=== PATIENT | male | born 1995 | race Caucasian/White ===

== ENCOUNTER 2020-01-06 01:52 | Emergency (ER) | payer OTHER ==
[~2020-01-06] VITALS: Ht 182.9 cm; Wt 86.2 kg
--- NOTE | 2020-01-06 01:53 | NUR ---
SANDRA 89 FROM HOME FOR OVERDOSE ON OXYCODONE 30MG IN TOTAL AND ALCOHOL. P A, OX4 BU T VERY DROWSY ON TRIAGE. REC'D NARCAN 2MG IV PROJECT ARCHITECT; pt awake, alert, placed on monitor, rr even and unlabored, -sob. awaiting er doctorzak baig
[2020-01-06 02:26] LABS: BASOPHILS % (AUTO) 0.6 % (0.0-2.0); EOSINOPHILS % (AUTO) 5.1 % (0.0-6.0); HEMATOCRIT 44 % (39-51); HEMOGLOBIN 14.5 g/dL (13.5-17.5); LYMPHOCYTES # (AUTO) 2.8 /CMM (0.8-4.8); LYMPHOCYTES % (AUTO) 38.6 % (20.0-44.0); MEAN CORPUSCULAR HGB CONC 33 g/dl (31.0-36.0); MEAN CORPUSCULAR VOLUME 93 fL (80-96); MONOCYTES # (AUTO) 0.8 /CMM (0.1-1.30); NEUTROPHILS # (AUTO) 3.2 /CMM (1.8-8.9); NEUTROPHILS % (AUTO) 44.7 % (43.0-81.0); PLATELET COUNT (AUTO) 213 /CMM (150-450); RED BLOOD CELL COUNT(AUTO) 4.73 MIL/uL (4.5-6.0); WHITE BLOOD COUNT (AUTO) 7.2 K/uL (4.3-11.0)
[2020-01-06] MEDS ORDERED: NALOXONE PREFILLED SYRINGE 2 MG/2 ML SYRINGE ONE (02:31)
--- NOTE | 2020-01-06 02:42 | NUR ---
[employer] AT BED SIDE
[2020-01-06] MEDS: NALOXONE HCL 4 MG in IV NS 0.9% 240 ML IV PRN (02:44)
[2020-01-06 02:47] LABS: CALCIUM, SERUM 9.2 mg/dL (8.5-10.1); CARBON DIOXIDE 28 mmol/L (21-32); CHLORIDE 99 mmol/L (98-107); CREATININE 1.4 mg/dL (0.6-1.3); GLUCOSE 236 mg/dL (74-106); POTASSIUM 2.9 mmol/L (3.5-5.1); SODIUM SERUM 137 mmol/L (136-145); UREA NITROGEN, BLOOD 12 mg/dL (7-18)
[2020-01-06 02:52] LABS: ALANINE AMINOTRANSFERASE 65 U/L (12-78); ALBUMIN 3.7 g/dL (3.4-5.0); ALCOHOL, BLOOD 46 mg/dL (0-0); ALKALINE PHOSPHATASE 82 U/L (46-116); ASPARTATE AMINOTRANSFERASE 40 U/L (15-37); BILIRUBIN,DIRECT 0.1 mg/dL (0.0-0.2); BILIRUBIN,TOTAL 0.4 mg/dL (0.2-1.0); TOTAL PROTEIN, SERUM 7.1 g/dL (6.4-8.2)
[2020-01-06] MEDS ORDERED: POTASSIUM CHLORIDE 20 MEQ TAB.PRT.SR PO ONE (03:03)
[2020-01-06 03:06] LABS: SALICYLATE 0.7 mg/dL (2.8-20.0)
[2020-01-06 03:07] LABS: ACETAMINOPHEN < 2 ug/ml (10-30)
[2020-01-06] MEDS: POTASSIUM CHLORIDE 20 MEQ TAB.PRT.SR PO ONE (03:07)
[2020-01-06] MEDS: IV NS 0.9% 1,000 ML BAG IV ONE (03:07)
--- NOTE | 2020-01-06 04:00 | NUR ---
COVID NEGATIVE PER LAB
--- NOTE | 2020-01-06 04:21 | NUR ---
DR CLIFTON WITH NEW ORDER FOR TROPONIN.
[2020-01-06 06:11] LABS: APPEARANCE,URINE CLEAR (CLEAR); BILIRUBIN,URINE NEGATIVE (NEGATIVE); BLOOD, URINE NEGATIVE Ery/uL (NEGATIVE); COLOR,URINE YELLOW (YELLOW); KETONES,URINE NEGATIVE (NEGATIVE); LEUKOCYTE ESTERASE ,URINE NEGATIVE (NEGATIVE); NITRITE, URINE NEGATIVE (NEGATIVE); PROTEIN,URINE NEGATIVE (NEGATIVE); UGLUCOSE 100 MG/DL mg/dL (NEGATIVE); UROBILINOGEN,URINE 0.2 EU/dL (0.2)
--- NOTE | 2020-01-06 06:12 | NUR ---
PER VERBAL MD ORDER, WILL D/C NARCAN DRIP AT THIS TIME. PT AWAKE, AAOX4. VITAL SIGNS STABLE. RESPIRATIONS EVEN AND UNLABORED. NO ACUTE DISTRESS NOTED AT THIS TIME. PT STILL ON MONITOR AND PULSE OX, WILL CONTINUE TO MONITOR.
--- NOTE | 2020-01-06 06:21 | NUR ---
URINE COLECTED AND SENT TO LAB
--- NOTE | 2020-01-06 07:25 | NUR ---
FRIEND GORDON WILL PICKUP PATIENT. ETA 30-45MIN
--- NOTE | 2020-01-06 07:39 | NUR ---
ASSESSED PT ON BED AWAKE AND ALERT, NOT IN RESPIRATORY DISTRESS, V/S STABLE, KEPT RESTED AND COMFORTABLE. WILL CONTINUE TO MONITOR.
--- NOTE | 2020-01-06 08:05 | NUR ---
SPOKED TO PT'S FRIEND AND SHE IS HERE TO PICK HIM UP. AWARE.
[2020-01-06 08:08] VITALS: BP 118/62
--- NOTE | 2020-01-06 08:08 | NUR ---
IV removed. Catheter intact and site benign. Pressure and 4x4 applied to site. No bleeding noted. Patient discharged to home in stable condition. Written and verbal after care instructions given. Patient verbalizes understanding of instruction.
== END 2020-01-06 08:09 | disposition home or self-care (01) ==
LOC: EDSEX 01:52 → ER 01:52
DX: T40.2X1A Poisoning by other opioids, accidental (unintentional), initial encounter (principal); Y92.039 Unspecified place in apartment as the place of occurrence of the external cause; Z20.828 Contact with and (suspected) exposure to other viral communicable diseases; Z72.0 Tobacco use; R09.02 Hypoxemia
CPT/HCPCS: 36415; 71045; 80048; 80076; 80305; 80307; 80329; 81001; 84484; 85025; 87426; 93005; 96365; 96366; 99291; 99406; G0480; J2310; J7030; J7050; 81000-TC